=== PATIENT | female | born 1945 | race Caucasian/White ===

== ENCOUNTER 2017-04-01 14:36 | Emergency (ER) | payer OTHER, MEDICAID ==
[~2017-04-01] VITALS: Ht 157.5 cm; Wt 58.1 kg
[2017-04-01 14:44] VITALS: BP_SYST 115
--- NOTE | 2017-04-01 17:42 | NUR ---
patient placed in bed 1.
--- NOTE | 2017-04-01 17:50 | NUR ---
ER at bedside examining patient.
--- NOTE | 2017-04-01 17:55 | NUR ---
Pt presents to ED wtih Rt ankle swelling, redness, lac, and pain. Pt reports walking into a branch on the ground outside of [place]. Pt reports branch pierced her skin. Pt is A&O x4 and in NAD
--- NOTE | 2017-04-01 18:54 | NUR ---
Admin Motrin for pain and inflammation at rt ankle. 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
--- NOTE | 2017-04-01 18:57 | NUR ---
Ice pack placed to rt ankle
[2017-04-01] MEDS ORDERED: IBUPROFEN 400 MG TABLET PO ONE (19:00)
--- NOTE | 2017-04-01 19:16 | NUR ---
Patient given written and verbal discharge instructions and verbalizes understanding. ER MD discussed with patient the results and treatment provided. Patient in stable condition. ID arm band removed. Rx of Advil given. Patient educated on pain management and to follow up with PMD. Pain Scale 2/10, and tolerable. Opportunity for questions provided and answered.
[2017-04-01 19:17] VITALS: BP_SYST 122
== END 2017-04-01 19:16 | disposition home or self-care (01) ==
LOC: SED 14:36
DX: S93.401A Sprain of unspecified ligament of right ankle, initial encounter (principal); W01.0XXA Fall on same level from slipping, tripping and stumbling without subsequent striking against object, initial encounter; Y93.89 Activity, other specified; Y92.89 Other specified places as the place of occurrence of the external cause; Y99.8 Other external cause status
CPT/HCPCS: 99284